=== PATIENT | female | born 1970 | race Hispanic/Latino ===

== ENCOUNTER 2016-09-23 12:44 | Day surgery (SDC) | payer SELFPAY ==
[~2016-09-23] VITALS: Ht 157.5 cm; Wt 76.0 kg
[~2016-09-23 12:44] MED LIST: OMEP20CA11 PO; Sodium Chloride LOK Flush 10 mL Syringe IV PRN; fentaNYL-PF 50 mCg/mL 2 mL Inj IVPUSH PRN
[2016-09-23 13:04] VITALS: BP 129/71; PULSE 71; RESP 16; O2SAT 99
[2016-09-23] MEDS ORDERED: CHOL10008 PO (13:25)
[2016-09-23] MEDS: 0.9% Sodium Chloride 1,000 ML IV PRN ×2 (13:58→14:33)
[2016-09-23 14:38] VITALS: BP 107/68; PULSE 86; RESP 14; O2SAT 99
--- NOTE | 2016-09-23 14:42 | PCM.ENDEGD ---
EGD Date of Service: Sep 23, 2016 Physician Demar Levine MD Pre Procedure Diagnosis: Dysphagia Post Procedure Dx & Findings: Esophagitis Procedure Esophagogastroduodenoscopy PROCEDURE IN DETAIL: The patient was placed in left lateral decubitus position. Bite block was placed. Scope lubricated, placed in posterior pharynx, passed through the cricopharyngeus and esophagus, slowly advanced the entire length of the gastric pouch, pylorus was identified, scope passed through the pylorus and descending portion of duodenum, withdrawn in the antrum, retroflexed upon itself for view of fundus and cardia. Scope was then withdrawn through the oropharynx. Esophagus appeared normal with normal healthy mucosa until we reached the Z line at 38 cm. Z line was irregular with some scarring. Biopsies obtained using cold forceps. We entered the stomach which showed normal mucosa with normal appearing rugae folds. Retroflexion was done. Stomach was easily inflatable and deflatable using air. Cardia fundus body antrum and pylorus were visualized. Scope was further advanced to distal duodenum. Duodenum showed normal healthy villous structures with normal rugae folds. Impression Esophageal irritation status post biopsy Recommendation Resume Prilosec that was already given. Presedation Assessment Risks and Benefits Informed consent was obtained from the patient after all risks and benefits including but not limited to drug reaction, infection, pain, bleeding, perforation, as well as alternatives were discussed. Patient monitoring Continuous pulse oximetry, cardiac monitoring, blood pressure monitoring, IV access, and oxygen at 2L per nasal cannula. Periprocedural Fentanyl: Fentanyl 100mcg Incrementally Midazolam: Midazolam 6mg Incrementally Complications There were no periprocedural complications identified. Post Procedure Plan Post Procedure Recommendations 1. Restrict activities today. 2. Resume normal activities in the morning. 3. Resume medications. 4. GERD behavioral modification: - Avoid fatty, acidic, spicy, large meals - Do not lie down after meals - Do not eat or drink anything for at least 2 1/2 hours before going to bed at night - Discontinue tobacco and alcohol - Decrease or avoid caffeine - Avoid chocolate and mints - Decrease weight - Avoid aspirin and non steroidal anti-inflammatory agents (NSAID) such as Aleve, Advil, Mobic, Naproxen, Ibuprofen, etc 5. Add proton pump inhibitor. Take 30 minutes before 1st meal of the day. 6. Patient informed of normal post procedure side effects as bloating, drowsiness, blood streaking in the stool 7. If gastric biopsy reveal H.pylori, continue with appropriate treatment 8. If small bowel biopsy reveals celiac, continue with appropriate treatment 9. Please don't hesitate to call me with any questions Demar Levine MD Sep 23, 2016 14:42
[2016-09-23 14:53] VITALS: BP 100/66; PULSE 88; RESP 14; O2SAT 99
--- NOTE | 2016-09-25 13:52 | PATH ---
SURGICAL PATHOLOGY Attending Physician:Demar Levine M.D. CASE STATUS: Signed Out PATIENT NAME: JAGDEEP BEARDEN PID: [id number] : 1970 DATE COLLECTED:09/23/2016 00:00 SPECIMEN: Esophagus, Biopsy CLINICAL HISTORY: 1).GASTRO-ESOPHAGEAL JUNCTION BIOPSY AT 38 CM FINAL DIAGNOSIS: 1.GASTROESOPHAGEAL JUNCTION BIOPSY: FRAGMENTS OF SQUAMOUS MUCOSA AND GASTRIC CARDIA-TYPE MUCOSA NEGATIVE FOR SPECIALIZED METAPLASIA OF HARKINS' S-TYPE ESOPHAGUS. Negative for dysplasia and malignancy. Scattered eosinophils present within squamous epithelium consistent with changes of chronic reflux. ICD10 code K21.0 GROSS DESCRIPTION: The specimen is received in one formalin filled container labeled with the patient's name, sublabeled "gastro-esophageal junction biopsy at 38 CM" and consists of 2 portions of tissue which aggregate to 0.3 x 0.3 x 0.2 CM. The specimen is entirely submitted in cassette. 09/24/2016 [facility] MICRO DESCRIPTION: See diagnosis. ICD-9 CODES: CPT CODES: 1: 59451 Electronically Signed Out Pavan Thomas MD [facility] [address], [place] [address] Technical component performed at [facility], [address] [place] [address] [address], [place], [address]
== END 2016-09-23 23:59 | disposition home or self-care (01) ==
LOC: END 12:44
PROVIDERS: ATTEND Internal Medicine
DX: K21.9 Gastro-esophageal reflux disease without esophagitis (principal); R13.10 Dysphagia, unspecified
CPT/HCPCS: 43239; G0500; J2250; J3010; J7030